=== PATIENT | female | born 1935 | race Caucasian/White ===

== ENCOUNTER 2018-01-21 19:48 | Emergency (ER) | payer MEDICARE ==
--- NOTE | 2018-01-21 21:54 | RAD ---
INDICATION: Cough COMPARISON: None TECHNIQUE: An AP portable view obtained at 2135 hours is submitted. FINDINGS: Bones/Soft Tissues: There are no acute bony findings. Cardiomediastinal: The cardiac silhouette is enlarged. Lungs: There are no infiltrates. Pleura: There are no pleural effusions. Other: None IMPRESSION: ENLARGED CARDIAC SILHOUETTE. LUNGS CLEAR.
[2018-01-21 22:07] LABS: ABS Basophils 0 10^3/ul (0-0.2); ABS Eosinophils 0 10^3/ul (0-0.6); ABS Lymphocytes 0.4 10^3/ul (1.0-4.8); ABS Monocytes 0.6 10^3/ul (0-0.8); ABS Neutrophils 9.1 10^3/ul (1.5-7.7); ABS Nucleated RBC 0 10^3/ul; Eosinophil % 0.4 % (0-6); Hematocrit 45 % (35-47); Mean Corpuscular HGB Conc 34 g/dl (31-36); Mean Corpuscular Hemoglobin 32 pg (27-31); Mean Corpuscular Volume 95 fL (80-97); Mean Platelet Volume 7.5 um3 (7.4-10.4); Nucleated Red Blood Cells % 0.1; Platelet Count 128 10^3/ul (150-450); Red Blood Count 4.69 10^6/ul (4.0-5.4); Red Cell Distribution Width 14 % (10.5-15); White Blood Count 10.2 10^3/ul (3.5-10.8)
[2018-01-21 22:26] LABS: EGFR Non-African American 48.9 (>60)
[2018-01-21] MEDS ORDERED: Albuterol/Ipratropium NEB.SOL* Albuterol 2.5 MG/Ipratropium 0.5 MG 3 ML INH ONE (23:26)
[2018-01-22 01:00] VITALS: BP 141/73
--- NOTE | 2018-01-22 01:05 | ED ---
Galo Fry Tecjoon, scribed for Nigel Urena MD on 01/21/18 at 2123 . Throat Pain/Nasal Congestion - HPI Summary HPI Summary: This patient is a 82 year old female presenting to [facility] accompanied by daughter -in-law with a chief complaint of acid reflux since approx. 2 weeks ago. Patient states that she cant swallow properly due to acid reflux. Patient states her last meal was around 1400, a turkey sandwich. Patient states that whenever she swallows, there is something in her throat, not dissimilar to being choked. Patient states that when she attempts, she vomits. Patient states she recently started taking Prilosec with minimal to no effects. During exam, patient is able to speak in full sentences and has no respiratory distress. The pain is rated 0/10 in severity. Symptoms aggravated by nothing. Symptoms alleviated by nothing. Patient additionally reports vomiting. Patient denies throat pain - History of Current Complaint Chief Complaint: EDGeneral Time Seen by Provider: 01/21/18 21:03 Hx Obtained From: Patient Onset/Duration: Still Present Severity: Mild Cough: Nonproductive - Allergies/Home Medications Allergies/Adverse Reactions: Allergies Allergy/AdvReac Type Severity Reaction Status Date / Time Penicillins Allergy Unknown Verified 01/21/18 20:09 Reaction Details Sulfa (Sulfonamide Allergy Unknown Verified 01/21/18 20:09 Antibiotics) Reaction Details Home Medications: Home Medications Albuterol HFA INHALER* [Ventolin HFA Inhaler*] 2 puff INH Q4H PRN 01/21/18 [ History Confirmed 01/21/18] Carvedilol TAB* [Coreg TAB*] 25 mg PO BID 01/21/18 [History Confirmed 01/21/18] Furosemide TAB* [Lasix TAB*] 40 mg PO DAILY 01/21/18 [History Confirmed 01/21/18 ] Ipratropium [place] [Ipratropium [place]] 0.06 % BOTH NARES BID 01/21/18 [ History Confirmed 01/21/18] Omeprazole CAP* [Prilosec CAP* 20 MG] 20 mg PO DAILY 01/21/18 [History Confirmed 01/21/18] Valsartan TAB* [Diovan TAB*] 160 mg PO DAILY 01/21/18 [History Confirmed ] predniSONE TAB* [Deltasone TAB*] 20 mg PO DAILY 01/21/18 [History Confirmed 04/04] PMH/Surg Hx/FS Hx/Imm Hx Previously Healthy: No GI History: Reports: Hx Gastroesophageal Reflux Disease Opthamlomology History: Denies: Hx Legally Blind EENT History: Denies: Hx Deafness Infectious Disease History: No Infectious Disease History: Denies: Traveled Outside the [place] in Last 30 Days - Family History Known Family History: Positive: Hypertension - Social History Lives: With Family Alcohol Use: None Hx Substance Use: No Substance Use Type: Reports: None Hx Tobacco Use: Yes Smoking Status (MU): Former Smoker Review of Systems Negative: Fever ENT: Other - closed throat, difficulty swallowing Negative: Sore Throat Positive: Vomiting All Other Systems Reviewed And Are Negative: Yes Physical Exam - Summary Physical Exam Summary: VITAL SIGNS: Reviewed. GENERAL: Patient is a well-developed and nourished female who is lying comfortable in the stretcher. Patient is not in any acute respiratory distress. HEAD AND FACE: No signs of trauma. No ecchymosis, hematomas or skull depressions. No sinus tenderness. EYES: PERRLA, EOMI x 2, No injected conjunctiva, no nystagmus. EARS: Hearing grossly intact. Ear canals and tympanic membranes are within normal limits. MOUTH: Oropharynx within normal limits. NECK: Supple, trachea is midline, no adenopathy, no JVD, no carotid bruit, no c- spine tenderness, neck with full ROM. CHEST: Symmetric, no tenderness at palpation LUNGS: Decreased breath sounds bilaterally CVS: Regular rate and rhythm, S1 and S2 present, no murmurs or gallops appreciated. ABDOMEN: Soft, non-tender. No signs of distention. No rebound no guarding, and no masses palpated. Bowel sounds are normal. EXTREMITIES: Bilateral lower extremity edema +3, Clubbing of fingers NEURO: Alert and oriented x 3. No acute neurological deficits. Speech is normal and follows commands. SKIN: Dry and warm Triage Information Reviewed: Yes Vital Signs On Initial Exam: Initial Vitals Temp Pulse Resp BP Pulse Ox 98.2 F 72 18 139/89 95 01/21/18 19:57 01/21/18 19:57 01/21/18 19:57 01/21/18 19:57 01/21/18 19:57 Vital Signs Reviewed: Yes Diagnostics - Vital Signs Vital Signs Temp Pulse Resp BP Pulse Ox 01/21/18 21:03 22 01/21/18 21:00 135/85 01/21/18 19:57 98.2 F 72 18 139/89 95 - Laboratory Result Diagrams: 01/21/18 21:54 01/21/18 21:54 Lab Statement: Any lab studies that have been ordered have been reviewed, and results considered in the medical decision making process. - Radiology CXR Xray Interpretation: Positive (See Comments) - CXR reveals, per radiologist, IMPRESSION: ENLARGED CARDIAC SILHOUETTE. LUNGS CLEAR. ED physician has reviewed this radiology report. Radiology Interpretation Completed By: Radiologist EENT Course/Dx - Course Course Of Treatment: This patient is a 82 year old female presenting to [facility] accompanied by [id number] with a chief complaint of acid reflux since approx. 2 weeks ago. Patient states that she cant swallow properly due to acid reflux. CXR reveals, per radiologist, IMPRESSION: ENLARGED CARDIAC SILHOUETTE. LUNGS CLEAR. ED physician has reviewed this radiology report. Bloodwork Obtained. Test results with no significant abnormalities. Patient will be discharged with a dx gastroesophageal reflux. Patient is advised to follow up with PCP in 3 days. The patient is agreeable with this plan. - Diagnoses Provider Diagnoses: Gastroesophageal reflux Discharge - Sign-Out/Discharge Documenting (check all that apply): Discharge - Discharge Plan Condition: Stable Disposition: HOME Patient Education Materials: Gastroesophageal Reflux Disease (ED) Referrals: Susan Casey MD [Primary Care Provider] - 3 Days Additional Instructions: Return to the ED for any new or worsening symptoms. The documentation as recorded by the Galo pichardo Tecjoon accurately reflects the service I personally performed and the decisions made by Ayanna rae Abdul, MD.
== END 2018-01-22 00:31 | disposition home or self-care (01) ==
LOC: ED 19:48
DX: K21.9 Gastro-esophageal reflux disease without esophagitis (principal); R11.10 Vomiting, unspecified; Z87.891 Personal history of nicotine dependence
CPT/HCPCS: 36415; 71045; 80053; 82150; 83690; 83735; 85025; 86140; 94640; 99283; A9270-GY

== ENCOUNTER 2018-04-19 14:09 | Inpatient (IN) | payer MEDICARE ==
[2018-04-19] MEDS ORDERED: NS 0.9% 1000 ML* 1,000 ML IV ONE (14:10)
--- NOTE | 2018-04-19 14:44 | RAD ---
INDICATION: Neurologic change. Code willis COMPARISON: None TECHNIQUE: Noncontrast axial source images were acquired from the skull base to the vertex. The examination is limited due to motion artifact. The patient could not cooperate fully for this examination FINDINGS: Ventricles/sulci: The ventricles and cisterns are normal in size and configuration for age. There is age-related volume loss Brain parenchyma: There is no acute appearing focal parenchymal finding, evidence of intracranial mass, or intracranial mass effect. There is significant artifact in the posterior fossa, however. There is decreased attenuation in the periventricular and subcortical white matter consistent with chronic ischemia. Intracranial hemorrhage:None. Extra-axial spaces: There are no abnormal extra axial fluid collections or evidence of extra-axial mass. Calvarium: There is no calvarial fracture or other calvarial abnormality. Scalp: There is no evidence of scalp or extracalvarial soft tissue abnormality. Paranasal sinuses/mastoid: The paranasal sinuses and mastoid air cells are clear. Other: None. IMPRESSION: LIMITED STUDY DUE TO MOTION ARTIFACT. AGE-RELATED INVOLUTIONAL CHANGES AND UNDERLYING CHRONIC MICROVASCULAR ISCHEMIA
[2018-04-19] MEDS ORDERED: Iodixanol* (CONTRAST) 320 MG/ML 100 ML SDV IV ONE (14:50)
[2018-04-19 15:03] LABS: ABS Basophils 0 10^3/ul (0-0.2); ABS Eosinophils 0.1 10^3/ul (0-0.6); ABS Lymphocytes 0.6 10^3/ul (1.0-4.8); ABS Monocytes 0.5 10^3/ul (0-0.8); ABS Neutrophils 4.2 10^3/ul (1.5-7.7); ABS Nucleated RBC 0 10^3/ul; Hematocrit 39 % (35-47); Lymphocyte % 11.3 % (25-47); Mean Corpuscular HGB Conc 34 g/dl (31-36); Mean Corpuscular Hemoglobin 33 pg (27-31); Mean Corpuscular Volume 98 fL (80-97); Mean Platelet Volume 7.9 um3 (7.4-10.4); Nucleated Red Blood Cells % 0; Platelet Count 150 10^3/ul (150-450); Red Blood Count 3.94 10^6/ul (4.00-5.40); Red Cell Distribution Width 15 % (10.5-15); White Blood Count 5.5 10^3/ul (3.5-10.8)
--- NOTE | 2018-04-19 15:03 | RAD ---
HISTORY: right hemiparesis [id number] COMPARISONS: Head CT dated April 19, 2018 TECHNIQUE: Multiple contiguous axial CT scans were obtained of the head and neck after the administration of nonionic intravenous contrast timed to the systemic arterial phase of contrast enhancement. Coronal and sagittal multiplanar reformations are submitted for review. Multiple 3-D maximum intensity projection reconstructions are also submitted for review. FINDINGS: The study is significantly limited secondary to extensive patient motion artifact. CTA NECK: AORTIC ARCH: There is calcific atherosclerotic disease of the aortic arch, without ostial or proximal stenosis of the cephalic great vessels. There is a normal three-vessel branching pattern. RIGHT VERTEBRAL ARTERY: The right vertebral artery is patent along its course, without stenosis. LEFT VERTEBRAL ARTERY: The left vertebral artery is patent along its course, without stenosis. DOMINANCE: The vertebral arteries are codominant. RIGHT COMMON CAROTID ARTERY: The right common carotid artery is patent. The right carotid bifurcation occurs at C4-C5 RIGHT INTERNAL CAROTID ARTERY: Evaluation limited by extensive patient motion artifact. The right internal carotid artery is patent. The degree of any stenosis cannot be evaluated. RIGHT EXTERNAL CAROTID ARTERY: The right external carotid artery is unremarkable. LEFT COMMON CAROTID ARTERY: The left common carotid artery is patent. The left carotid bifurcation occurs at C4-C5 LEFT INTERNAL CAROTID ARTERY: Evaluation limited by extensive patient motion artifact. The left internal carotid artery is occluded at the bifurcation. LEFT EXTERNAL CAROTID ARTERY: The left external carotid artery is unremarkable. VENOUS CIRCULATION: The venous system is unremarkable. SALIVARY GLANDS: The parotid glands, submandibular glands, sublingual glands are normal. NASAL CAVITY/NASOPHARYNX: The nasal cavity and nasopharynx are normal. ORAL CAVITY/OROPHARYNX: The oral cavity and oropharynx are unremarkable. LARYNGEAL APPARATUS/HYPOPHARYNX: The laryngeal apparatus and hypopharynx are normal. UPPER AIRWAY/UPPER ESOPHAGUS: The visualized upper airway and esophagus are normal. LUNG APICES: There is biapical centrilobular emphysematous change. THYROID GLAND: The thyroid gland is normal. LYMPH NODES: There is no lymphadenopathy by size criteria. BONES AND SOFT TISSUES: Degenerative changes are noted of the spine. CTA HEAD: The CTA portion of the head is considered nondiagnostic secondary to extensive motion artifact. IMPRESSION: 1. MARKEDLY LIMITED STUDY. 2. THE CTA HEAD PORTION OF THE STUDY IS CONSIDERED NONDIAGNOSTIC. 3. 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 PRELIMINARY FINDINGS WERE DISCUSSED WITH DR. ALMEIDA IN THE EMERGENCY DEPARTMENT AT APPROXIMATELY 2:59 PM ON APRIL 19, 2018. CPT II Codes: 3100F
--- NOTE | 2018-04-19 15:07 | RAD ---
Indication: Shortness of breath. Single frontal view of the chest performed at 1445 hours was reviewed. Comparison is made with previous exam dated January 21, 2018. Cardiomegaly is noted. Lung alvarez demonstrate no pleural fluid, pneumonia or pneumothorax. No pneumothorax is noted. IMPRESSION: CARDIOMEGALY WITHOUT EVIDENCE OF PNEUMONIA.
[2018-04-19 15:12] LABS: INR 1.03 (0.77-1.02)
[2018-04-19 15:34] LABS: EGFR Non-African American 59.7 (>60)
[2018-04-19 15:43] LABS: Urine Appearance Clear; Urine Blood 1+ (Negative); Urine Color Yellow; Urine Ketones Negative (Negative); Urine Protein Negative (Negative); Urine Specific Gravity 1.009 (1.010-1.030); Urine Urobilinogen Negative (Negative)
[2018-04-19] MEDS ORDERED: Morphine VIAL* 4 MG/ML VIAL (1 ml vial) IV ONE (16:17)
[2018-04-19] MEDS ORDERED: Ondansetron ODT TAB* 4 MG SL PRN (17:46)
[2018-04-19] MEDS ORDERED: Atropine 1% (ORAL/SL)* 15 ML BTL SL PRN (17:46)
[2018-04-19] MEDS ORDERED: Acetaminophen SUPP* 650 MG SUPP PR PRN (17:46)
[2018-04-19] MEDS ORDERED: Albuterol HFA INHALER* 8 gm MDI INH PRN (17:51)
[2018-04-19] MEDS ORDERED: Ipratropium 0.5MG/2.5ML NEB* 0.5 MG/2.5 ML NEB.SOLN INH PRN (17:51)
[2018-04-19] MEDS ORDERED: Scopolamine 1.5 mg* PATCH TRANSDERM SCH (18:00)
--- NOTE | 2018-04-19 18:12 | ED ---
Vipul Fry SooYoung, scribed for Magda Michaels MD on 04/19/18 at 1419 . Neurological HPI - HPI Summary HPI Summary: LEVEL 5 CAVEAT: HPI LIMITED DUE TO PT CONDITION, UNRESPONSIVE Pt is an 82 y/o F presenting to ED BIBA for possible stroke onset EDGE [place] UPPERS. Per EMS: Family last saw pt at 0830 this date and pt was at her baseline. When they came home this afternoon at approx 1315, the family found the pt face down. Pt showing signs of R-sided deficit. Pt has COPD, CHF. Per family: Found pt face down on floor. She was not talking. PMHx negative: stroke, brain surgery or any recent surgeries. Takes daily baby aspirin. Pt has c/o of dyspnea for past few days. Pt seen at 1403 immediately upon arrival at Charge desk. Dr. Toro, neuro, is present. - History of Current Complaint Stated Complaint: CODE RENE Time Seen by Provider: 04/19/18 14:10 Hx Obtained From: Family/Demurrage Man, EMS - Allergy/Home Medications Allergies/Adverse Reactions: Allergies Allergy/AdvReac Type Severity Reaction Status Date / Time Penicillins Allergy Unknown Verified 01/21/18 20:09 Reaction Details Sulfa (Sulfonamide Allergy Unknown Verified 01/21/18 20:09 Antibiotics) Reaction Details Home Medications: Home Medications Albuterol HFA INHALER* [Ventolin HFA Inhaler*] 2 puff INH Q4H PRN 04/19/18 [ History Confirmed 04/19/18] Aspirin EC TAB* [Ecotrin EC Low Dose 81 MG*] 81 mg PO DAILY 04/19/18 [History Confirmed 04/19/18] Carvedilol TAB* [Coreg TAB*] 12.5 mg PO BID 04/19/18 [History Confirmed 04/19/18 ] Famotidine TAB* [Pepcid 20 MG TAB*] 20 mg PO DAILY 04/19/18 [History Confirmed 04/19/18] Furosemide TAB* [Lasix TAB*] 20 mg PO DAILY 04/19/18 [History Confirmed 04/19/18 ] Ipratropium 0.5MG/2.5ML NEB* [Atrovent 0.5 MG NEB.SOUTH*] 0.5 mg INH Q6H PRN 04/19 [History Confirmed 04/19/18] Ipratropium Zebulon 1 spray NA BID 04/19/18 [History Confirmed 04/19/18] Omeprazole CAP* [Prilosec CAP* 20 MG] 20 mg PO BID 04/19/18 [History Confirmed 04/19/18] Ranitidine TAB (NF) [Zantac TAB (NF)] 150 mg PO DAILY 04/19/18 [History Confirmed 04/19/18] Valsartan TAB* [Diovan TAB*] 160 mg PO BID 04/19/18 [History Confirmed 04/19/18] PMH/Surg Hx/FS Hx/Imm Hx Previously Healthy: No - LEVEL 5 CAVEAT:PMHx LIMITED DUE TO PT CONDITION, UNRESPONSIVE Respiratory History: Reports: Hx Asthma, Hx Chronic Obstructive Pulmonary Disease (COPD) GI History: Reports: Hx Gastroesophageal Reflux Disease Sensory History: Denies: Hx Legally Blind, Hx Deafness Opthamlomology History: Denies: Hx Legally Blind Infectious Disease History: Denies: Traveled Outside the [place] in Last 30 Days - Family History Known Family History: Positive: Hypertension - Social History Occupation: Retired Lives: With Family Alcohol Use: None Hx Substance Use: No Substance Use Type: Reports: None Hx Tobacco Use: Yes Smoking Status (MU): Former Smoker Review of Systems - ROS Summary Review of Systems Summary: LEVEL 5 CAVEAT: ROS LIMITED DUE TO PT CONDITION, UNRESPONSIVE. Physical Exam - Summary Physical Exam Summary: Appearance: Well-appearing, moderate pain distress, well-nourished Skin: Warm, color reflects adequate perfusion, dry Head: Normal Head/Face inspection, atraumatic Eyes: Conjunctiva clear ENT: Normal inspection Neck: Supple, no nodes, no JVD Respiratory: Lungs clear, normal breath sounds, no respiratory distress Cardio: RRR, No murmur, pulses normal, brisk capillary refill Abdomen: Soft, nontender Bowel sounds: Present Musculoskeletal: Strength Intact/ROM intact, no calf tenderness, no edema. Psychological: Normal Neuro: Alert, muscle tone normal, no focal deficit Triage Information Reviewed: Yes Vital Signs On Initial Exam: Initial Vitals Temp Pulse Resp BP Pulse Ox 98.8 F 96 30 146/103 80 04/19/18 14:24 04/19/18 14:24 04/19/18 14:24 04/19/18 14:24 04/19/18 14:24 Vital Signs Reviewed: Yes - [place] Coma Scale Best Eye Response: 4 - Spontaneous Best Motor Response: 4 - Withdraws Best Verbal Response: 1 - None Coma Scale Total: 9 Diagnostics - Vital Signs Vital Signs Temp Pulse Resp BP Pulse Ox 04/19/18 17:54 64 21 123/88 98 04/19/18 17:24 67 21 121/81 97 04/19/18 17:00 64 22 99 04/19/18 16:54 66 24 126/82 99 04/19/18 16:25 37 153/118 04/19/18 16:21 40 04/19/18 16:00 82 39 98 04/19/18 15:25 80 30 136/100 100 04/19/18 15:00 78 24 87 04/19/18 14:54 80 42 147/89 92 04/19/18 14:46 84 38 92 04/19/18 14:24 98.8 F 96 30 146/103 80 - Laboratory Lab Results: Lab Results 04/19/18 04/19/18 04/19/18 Range/Units 14:44 14:44 14:44 WBC 5.5 (3.5-10.8) 10^3/ul RBC 3.94 L (4.00-5.40) 10^6/ul Hgb 13.0 (12.0-16.0) g/dl Hct 39 (35-47) % MCV 98 H (80-97) fL MCH 33 H (27-31) pg MCHC 34 (31-36) g/dl RDW 15 (10.5-15) % Plt Count 150 (150-450) 10^3/ul MPV 7.9 (7.4-10.4) um3 Neut % (Auto) 77.1 (38-83) % Lymph % (Auto) 11.3 L (25-47) % [place] % (Auto) 9.9 H (0-7) % Eos % (Auto) 1.0 (0-6) % Baso % (Auto) 0.7 (0-2) % Absolute Neuts (auto) 4.2 (1.5-7.7) 10^3/ul Absolute Lymphs (auto) 0.6 L (1.0-4.8) 10^3/ul Absolute Monos (auto) 0.5 (0-0.8) 10^3/ul Absolute Eos (auto) 0.1 (0-0.6) 10^3/ul Absolute Basos (auto) 0 (0-0.2) 10^3/ul Absolute Nucleated RBC 0 10^3/ul Nucleated RBC % 0 INR (Anticoag Therapy) 1.03 H (0.77-1.02) APTT 34.7 (26.0-36.3) seconds Sodium 141 (135-145) mmol/L Potassium 3.4 L (3.5-5.0) mmol/L Chloride 104 (101-111) mmol/L Carbon Dioxide 29 (22-32) mmol/L Anion Gap 8 (2-11) mmol/L BUN 28 H (6-24) mg/dL Creatinine 0.90 (0.51-0.95) mg/dL Est GFR ( Amer) 72.2 (>60) Est GFR (Non-Af Amer) 59.7 (>60) BUN/Creatinine Ratio 31.1 H (8-20) Glucose 112 H (70-100) mg/dL Lactic Acid (0.5-2.0) mmol/L Calcium 8.2 L (8.6-10.3) mg/dL Total Bilirubin 0.50 (0.2-1.0) mg/dL AST 28 (13-39) U/L ALT 26 (7-52) U/L Alkaline Phosphatase 68 (34-104) U/L Troponin I 0.03 (<0.04) ng/mL B-Natriuretic Peptide ( - 100) pg/mL Total Protein 5.4 L (6.4-8.9) g/dL Albumin 3.0 L (3.2-5.2) g/dL Globulin 2.4 (2-4) g/dL Albumin/Globulin Ratio 1.3 (1-3) Triglycerides 122 mg/dL Cholesterol 147 mg/dL LDL Cholesterol 79 mg/dL HDL Cholesterol 43.2 mg/dL Urine Color Urine Appearance Urine pH (5-9) Ur Specific [place] (1.010-1.030) Urine Protein (Negative) Urine Ketones (Negative) Urine Blood (Negative) Urine Nitrate (Negative) Urine Bilirubin (Negative) Urine Urobilinogen (Negative) Ur Leukocyte Esterase (Negative) Urine WBC (Auto) (Absent) Urine RBC (Auto) (Absent) Urine Bacteria (Absent) Hyaline Casts (Absent) Urine Glucose (Negative) Blood Type Antibody Screen 04/19/18 04/19/18 04/19/18 Range/Units 14:44 14:44 14:44 WBC (3.5-10.8) 10^3/ul RBC (4.00-5.40) 10^6/ul Hgb (12.0-16.0) g/dl Hct (35-47) % MCV (80-97) fL MCH (27-31) pg MCHC (31-36) g/dl RDW (10.5-15) % Plt Count (150-450) 10^3/ul MPV (7.4-10.4) um3 Neut % (Auto) (38-83) % Lymph % (Auto) (25-47) % [place] % (Auto) (0-7) % Eos % (Auto) (0-6) % Baso % (Auto) (0-2) % Absolute Neuts (auto) (1.5-7.7) 10^3/ul Absolute Lymphs (auto) (1.0-4.8) 10^3/ul Absolute Monos (auto) (0-0.8) 10^3/ul Absolute Eos (auto) (0-0.6) 10^3/ul Absolute Basos (auto) (0-0.2) 10^3/ul Absolute Nucleated RBC 10^3/ul Nucleated RBC % INR (Anticoag Therapy) (0.77-1.02) APTT (26.0-36.3) seconds Sodium (135-145) mmol/L Potassium (3.5-5.0) mmol/L Chloride (101-111) mmol/L Carbon Dioxide (22-32) mmol/L Anion Gap (2-11) mmol/L BUN (6-24) mg/dL Creatinine (0.51-0.95) mg/dL Est GFR ( Amer) (>60) Est GFR (Non-Af Amer) (>60) BUN/Creatinine Ratio (8-20) Glucose (70-100) mg/dL Lactic Acid 1.6 (0.5-2.0) mmol/L Calcium (8.6-10.3) mg/dL Total Bilirubin (0.2-1.0) mg/dL AST (13-39) U/L ALT (7-52) U/L Alkaline Phosphatase (34-104) U/L Troponin I (<0.04) ng/mL B-Natriuretic Peptide 4515 H ( - 100) pg/mL Total Protein (6.4-8.9) g/dL Albumin (3.2-5.2) g/dL Globulin (2-4) g/dL Albumin/Globulin Ratio (1-3) Triglycerides mg/dL Cholesterol mg/dL LDL Cholesterol mg/dL HDL Cholesterol mg/dL Urine Color Urine Appearance Urine pH (5-9) Ur Specific [place] (1.010-1.030) Urine Protein (Negative) Urine Ketones (Negative) Urine Blood (Negative) Urine Nitrate (Negative) Urine Bilirubin (Negative) Urine Urobilinogen (Negative) Ur Leukocyte Esterase (Negative) Urine WBC (Auto) (Absent) Urine RBC (Auto) (Absent) Urine Bacteria (Absent) Hyaline Casts (Absent) Urine Glucose (Negative) Blood Type A Positive Antibody Screen Negative 04/19/18 Range/Units 15:22 WBC (3.5-10.8) 10^3/ul RBC (4.00-5.40) 10^6/ul Hgb (12.0-16.0) g/dl Hct (35-47) % MCV (80-97) fL MCH (27-31) pg MCHC (31-36) g/dl RDW (10.5-15) % Plt Count (150-450) 10^3/ul MPV (7.4-10.4) um3 Neut % (Auto) (38-83) % Lymph % (Auto) (25-47) % [place] % (Auto) (0-7) % Eos % (Auto) (0-6) % Baso % (Auto) (0-2) % Absolute Neuts (auto) (1.5-7.7) 10^3/ul Absolute Lymphs (auto) (1.0-4.8) 10^3/ul Absolute Monos (auto) (0-0.8) 10^3/ul Absolute Eos (auto) (0-0.6) 10^3/ul Absolute Basos (auto) (0-0.2) 10^3/ul Absolute Nucleated RBC 10^3/ul Nucleated RBC % INR (Anticoag Therapy) (0.77-1.02) APTT (26.0-36.3) seconds Sodium (135-145) mmol/L Potassium (3.5-5.0) mmol/L Chloride (101-111) mmol/L Carbon Dioxide (22-32) mmol/L Anion Gap (2-11) mmol/L BUN (6-24) mg/dL Creatinine (0.51-0.95) mg/dL Est GFR ( Amer) (>60) Est GFR (Non-Af Amer) (>60) BUN/Creatinine Ratio (8-20) Glucose (70-100) mg/dL Lactic Acid (0.5-2.0) mmol/L Calcium (8.6-10.3) mg/dL Total Bilirubin (0.2-1.0) mg/dL AST (13-39) U/L ALT (7-52) U/L Alkaline Phosphatase (34-104) U/L Troponin I (<0.04) ng/mL B-Natriuretic Peptide ( - 100) pg/mL Total Protein (6.4-8.9) g/dL Albumin (3.2-5.2) g/dL Globulin (2-4) g/dL Albumin/Globulin Ratio (1-3) Triglycerides mg/dL Cholesterol mg/dL LDL Cholesterol mg/dL HDL Cholesterol mg/dL Urine Color Yellow Urine Appearance Clear Urine pH 5.0 (5-9) Ur Specific [place] 1.009 L (1.010-1.030) Urine Protein Negative (Negative) Urine Ketones Negative (Negative) Urine Blood 1+ A (Negative) Urine Nitrate Negative (Negative) Urine Bilirubin Negative (Negative) Urine Urobilinogen Negative (Negative) Ur Leukocyte Esterase Negative (Negative) Urine WBC (Auto) Trace(0-5/hpf) (Absent) Urine RBC (Auto) Absent (Absent) Urine Bacteria Absent (Absent) Hyaline Casts Present A (Absent) Urine Glucose Negative (Negative) Blood Type Antibody Screen Result Diagrams: 04/19/18 14:44 04/19/18 14:44 Lab Statement: Any lab studies that have been ordered have been reviewed, and results considered in the medical decision making process. - Radiology CXR Xray Interpretation: Positive (See Comments) - IMPRESSION: Cardiomegaly without evidence of PNA. ED physician has reviewed this radiology report and agrees. Radiology Interpretation Completed By: Radiologist - CT BRAIN CT CT Interpretation: Positive (See Comments) - IMPRESSION: LIMITED STUDY DUE TO MOTION ARTIFACT. AGE-RELATED INVOLUTIONAL CHANGES AND UNDERLYING CHRONIC MICROVASCULAR ISCHEMIA. ED physician has reviewed this report and agrees. CT Interpretation Completed By: Radiologist HEAD CTA CT Interpretation: Positive (See Comments) - IMPRESSION: Critical stenosis in L internal carotid. See [employer] for full impression. CT Interpretation Completed By: Radiologist - Dr Bautista, at 1458. - EKG 1438 Cardiac Rate: NL EKG Rhythm: Sinus Rhythm - 78bpm ST Segment: Non-Specific Ectopy: None EKG Interpretation: nml AVCT, prolonged IVCT in LBBB, prolonged QTc, axis 206, no acute changes EKG Comparison: Other - no prior for comparison NIH Scale - NIH Scale Level of Consciousness: Repeated or Painful Stimulation Ask Patient the Month and His/Her Age: Neither Correct/Aphasic Ask Pt to Open/Close Eyes and Stage Rigger/Release Non-Paretic Hand: Neither Correctly Best Gaze (Only Horizontal Eye Movement): Forced Deviation Visual Field Testing: Bilateral Hemianopia Facial Paresis-Pt to Smile & Close Eyes or Grimace Symmetry: Complete Paralysis Motor Function - Right Arm: No Movement Motor Function - Left Arm: No Drift-Holds 10 Seconds Motor Function - Right Leg: No Movement Motor Function - Left Leg: No Drift-Holds 10 Seconds Limb Ataxia-Must be out of Proportion to Weakness Present: Present in Two Limbs Sensory (Use Pinprick to Test Arms/Legs/Trunk/Face): Severe to Total Loss Best Language (Describe Picture, Name Items): Mute/Global Aphasia Dysarthria (Read Several Words): Unintelligible or Mute Extinction and Inattention: Profound Aníbal-Inattention Total Score: 33 Re-Evaluation - Re-Evaluation 1 Re-Evaluation Time: 15:54 Change: Unchanged Comment: Discussing comfort care with family, plans for admission, and next steps. Per family, pt has been mildly responsive -- talking, laughing. Course/Dx - Course Course Of Treatment: 1356: Vishal Rene called in the field. 1418: Unofficial read of plain CTA by Dr. Toro, neuro: IMPRESSION: no bleed. 1439: Per new information from pt's medical proxy, Brenna Miranda SPD MANAGER, will not be transferring pt, told to "keeps pt comfortable, no intervention.". 1437: Consulted with physician at [facility]. Family told they may consult with if additional care is needed. - Diagnoses Provider Diagnoses: Stroke During the Visit The Following Alert/Code Occurred: Vishal Ramos - Called at 1356, in field - Physician Notifications Discussed Care Of Patient With: Royer Toro - neuro Time Discussed With Above Provider: 14:39 Instructed by Provider To: Other - New information provided by medical proxy, will not be transferring pt. - Critical Care Time Critical Care Time: 30-74 min - 30 mins, assessing for acute LVO stroke Discharge - Discharge Plan Referrals: Susan Casey MD [Primary Care Provider] - Consult Consult: 1508: Consult with Dr. carrillo, hospitalist Will admit pt. The documentation as recorded by the Vipul pichardo SooYoung accurately reflects the service I personally performed and the decisions made by me, Magda Michaels MD.
--- NOTE | 2018-04-19 18:17 | CONS ---
NEUROLOGY CONSULTATION: DATE OF CONSULT: 04/19/18 LOCATION: She is in the emergency room. REFERRING PHYSICIAN: Dr. Magda Michaels. CHIEF COMPLAINT: Stroke. HISTORY OF PRESENT ILLNESS: Crystal Dobbs is an 82-year-old right-handed woman who was last seen well by her son and [id number] at 8:30 this morning. They went out of town and came back to [facility] on the floor. An ambulance was summoned and she arrived in the emergency room about 5 hours an d 45 minutes into her syndrome in terms of last known well. There is no prior history of stroke or s eizures. She is not on anticoagulants. She has a history of ischemic cardiomyopathy with a declinin g ejection fraction. There are no recent surgeries or trauma. She is not on anticoagulants. She ta kes 1 aspirin per day at home. She was seen upon arrival in the emergency room by myself and Dr. Anna alford. She had a forced left gaze deviation and was not moving her right side. In the CT scanner, ther e was some movement artifact, but there was no evidence of early infarction. There was suggestion of a left middle cerebral artery dense sign, but it could have been calcification. A CT angiogram was a ttempted, but the patient moved right into the infusion and so, it is a very poor study. I cannot re ally see the intracranial vessels very well at all. She was brought back into the emergency room and reevaluated. She continued with a dense right hemiparesis, which was flaccid in arm and leg, centra l pattern facial weakness, forced gaze deviation to the left. She did not respond to visual threat. She was mute and did not respond to any commands or answer questions. I estimate her NIH stroke scor e was 27. We initiated possible evaluation at the [facility] for possible thrombectomy as she is outside of the intravenous t-PA window. The son connected me to his sister, who is a nurse practitioner in [place]. Her name is Brenna Downey and she reported that her mother would not wa nt any further interventions done and would just want to be kept comfortable. She reaffirmed that sh e has a bad ischemic cardiomyopathy, which has been getting worse and has been losing weight because of the esophageal strictures. She assured me that she is the healthcare proxy. At that point, I spo ke with the son and [id number] and it was agreed upon not to pursue possible transfer for mechan ical thrombectomy. PAST MEDICAL HISTORY: Notable for ischemic cardiomyopathy, COPD, gastroesophageal reflux. MEDICATIONS AT HOME: 1. Aspirin 81 mg p.o. q. day. 2. Diovan 160 mg p.o. b.i.d. 3. Furosemide 20 mg p.o. q. day. 4. Ventolin inhaler 2 puffs q.4 hours p.r.n. 5. Atrovent inhaler 0.5 mg q.6 hours p.r.n. 6. Coreg 12.5 mg p.o. b.i.d. 7. Omeprazole 20 mg p.o. b.i.d. 8. Pepcid 20 mg p.o. q. day. SOCIAL HISTORY: The patient apparently lives independently with family help. REVIEW OF SYSTEMS: Not possible at this point in time. PHYSICAL EXAM: She is an elderly woman who is having some difficulty breathing at first evaluation. Heart appears to be in a regular rhythm and I could not hear any murmurs. There are no cervical bru its auscultated. Head was atraumatic. There is a little ecchymosis on her right knee. Neurologically, she had forced left gaze deviation, which improved about an hour or so after first ev aluation. She did not respond to visual threat from either side initially, but about an hour after t he first evaluation responded to visual threat from the left, but not the right. Facial musculature is notable for central pattern right facial weakness. She did not respond to nasal tickle on the rig ht, but she did on the left. She had a flaccid right arm and right leg initially. About an hour late r, she weakly raised the right hand up, but was not able to raise the right arm up. She had semi-pur poseful motions of the left arm reaching up toward her mask and at one point scratching her face. Sh e had restless movements of the left leg. She did not respond to deep pain stimulus to the right morales d or foot. She was mute and followed no commands. About an hour after initial evaluation, she would smile at the family and at one point seemed to hold up 1 finger to command. DIAGNOSTIC STUDIES/LAB DATA: CT angiogram report came back and was interpreted by the radiologist as having occlusion of the left carotid artery. The intracranial portion of the CTA was uninterpretabl e. Laboratory data from today is notable for a normal CBC other than MCV of 98. Platelet count is 150,00 0. INR and PTT are not back yet. Chemistry profile is not back yet either, but her creatinine on was 1.07 with a BUN of 37 and a GFR of 48.9. IMPRESSION AND PLAN: Impression is that of a left carotid occlusion. She is outside of the IV t-PA window. We discussed possible consideration for mechanical thrombectomy with rayne to [facility] when I spoke with the healthcare proxy, Brenna Downey, she said that the patient would not want maribell t done. We will continue aspirin and if she is able to swallow, start Plavix. We will decide on how aggressi ve to be as she comes along. Her nurse practitioner healthcare proxy, Brenna Downey, is on her way to the hospital and we can discuss it further at that point. [id number]/[facility] #: [id number]
[2018-04-19 21:45] VITALS: BP 137/103
[2018-04-19] MEDS: Morphine ORAL CONCENTRATE* 5 MG/0.25 ML ORAL.SYRIN PO PRN (21:59)
--- NOTE | 2018-04-19 23:56 | HP ---
CC: Dr. Susan Casey* HISTORY AND PHYSICAL: DATE OF ADMISSION: 04/19/18 PROVIDER: Rosanne Acosta NP PRIMARY CARE PROVIDER: Dr. Susan Casey. ATTENDING PHYSICIAN WHILE IN THE HOSPITAL: Dr. Janeth Mckeon* (dictated by Rosanne Acosta NP) CHIEF COMPLAINT: Change in mental status/weakness. HISTORY OF PRESENT ILLNESS: Ms. Dobbs is an 82-year-old female patient with a past medical history significant for ischemic cardiomyopathy with an EF of 15 % to 20%, GERD, hypertension, and asthma, who was brought to the emergency room by EMS. The patient lives with her son and [id number]. The son last saw her this morning at 8 a.m. She was still resting in bed, but alert and oriented with no complaints. The son and daughter left and went out of town. They returned to the home between 1 to 1:30 p.m. and found the patient lying on the floor, unresponsive, so they called EMS and she was brought to the emergency room. The family states that the patient was in her normal state of health yesterday with no complaints. She was totally cognitively intact. She is independent and very functional at home. They denied any recent illnesses or sick contacts. While in the emergency room, the patient was placed on telemetry. She had a CT of the brain. CT of the brain, radiologist's impression was limited study due to motion artifact, age-related involutional changes, and underlying chronic microvascular ischemia. She had a CTA of the head. The CTA of the head portion of the study was considered nondiagnostic. There was an occlusion of left internal carotid artery at the bifurcation. This was remarkably limited study. The patient remained unresponsive in the emergency room. Her right arm was flaccid, her right leg was weak. Initial NIH score was 33. Given her symptoms and stroke presenting symptoms, we were asked by the emergency room to evaluate her for admission. She was also seen and consulted by Neurology in the emergency room as well. PAST MEDICAL HISTORY: 1. Ischemic cardiomyopathy with EF of 15% to 20%. 2. GERD. 3. Uterine prolapse with pessary. 4. Hypertension. 5. Asthma. PAST SURGICAL HISTORY: Hysterectomy. HOME MEDICATIONS: Include: 1. Zantac 150 mg p.o. daily. 2. Pepcid 20 mg p.o. daily. 3. Omeprazole 20 mg p.o. b.i.d. 4. Aspirin 81 mg p.o. daily. 5. Valsartan 160 mg p.o. b.i.d. 6. Furosemide 20 mg p.o. daily. 7. Ipratropium bromide 1 spray b.i.d. 8. Albuterol HFA 2 puffs q.4 hours as needed. 9. Atrovent nebulizer 0.5 q.6 hours as needed. 10. Coreg 12.5 mg p.o. b.i.d. ALLERGIES: Allergy to PENICILLIN and SULFA. SOCIAL HISTORY: The patient quit smoking approximately 30 years ago. Prior to that, she had a [id number] smoking history. Family reports no alcohol or illicit drug use. They reported she retired approximately 3 years ago. Surrogate decision maker in the event she is unable to make her own decisions is Brenna Bernal, her daughter. The patient is a DNR, DNI comfort measures only. REVIEW OF SYSTEMS: There was no documented fever. Unable to get review of systems from the patient as she is nonverbal with minimal response. The family reports no vomiting or recent illnesses. No fevers, cough, or congestion. PHYSICAL EXAMINATION GENERAL: Ms. Dobbs is an 82-year-old female, who appears unwell resting on the stretcher in the emergency room. She does not appear to be in any acute distress. She will open her eyes minimally to tactile stimuli. VITAL SIGNS: Blood pressure is 147/89, heart rate was 77, respirations are 24, temperature was 98.8, O2 saturation was 92% to 98% on 4 L via facemask. HEENT: Head is atraumatic, normocephalic. She does have a left gaze with her eyes. Oral mucosa appeared to be dry. NECK: Supple. LUNGS: Clear to auscultation bilaterally. There are no wheezes, rales, or rhonchi. CARDIAC: S1, S2. There is a regular rate. There are no rubs or gallops. ABDOMEN: Flat. Bowel sounds are present x4. EXTREMITIES: Pulses are +2 bilaterally. Her right arm is flaccid. She does have a strong left handgrip. Her right lower extremity has weakened muscle tone. Her left lower extremity is stiff when trying to move. NEUROLOGIC: She does not follow commands consistently. She did squeeze my hand with her left hand. Her right arm is flaccid. She is gazing to the left with her head turned to the left side. She does move bilateral feet with tactile stimulation. SKIN: Intact. DIAGNOSTIC STUDIES AND LABORATORY DATA: WBCs were 5.5, RBCs 3.94, hemoglobin was 13.0, hematocrit was 39, platelet count was 150. Coag 1.03. Chemistry: Sodium 141, potassium was 3.4, chloride was 104, carbon dioxide was 29, BUN was 28, creatinine 0.9, lactic acid was 1.6, calcium 8.2, BNP was 4515. Urine pH was 5.0, specific gravity 1.009, urine protein was negative, urine ketones were negative, urine blood was 1+, urine nitrites were negative, bilirubin was negative, urobilinogens negative, urine leukocyte esterase was negative, urine wbc's were trace, rbc's were absent, bacteria was absent. Hyaline casts were present. Urine glucose was negative. EKG showed sinus rhythm at a rate of 78 with T-wave changes. CT of the brain, radiologist's impression: Limited study due to motion artifact, age-related involutional changes, underlying chronic microvascular ischemia. Chest x-ray: Cardiomegaly without evidence of pneumonia. CTA of the head, radiologist's impression: Markedly limited study. The CTA of the head portion of the study was considered nondiagnostic. There is an occlusion of the left internal carotid artery at the bifurcation. ASSESSMENT AND PLAN: Ms. Dobbs is an unfortunate 82-year-old female that presented to the emergency room today with altered mental status and stroke- like symptoms. 1. Cerebrovascular accident. The patient was seen and consulted by Dr. Toro in the emergency room. Family was updated on her prognosis and symptoms. The patient has decided to make the patient comfort care. She will be admitted under comfort care orders with very limited intervention. They do not wish to have IV hydration or IV antibiotics. She will be given sublingual morphine as needed for shortness breath or pain. She will be given Ativan sublingual as needed for anxiety and restlessness. I did also order atropine as needed for increased secretions. The patient may have oxygen as needed for comfort. The family wishes at this time to proceed with hospice and comfort measures only. A MOLST form was completed and filled out and signed and has been placed on the chart. The family are all in agreement proceeding with comfort measures only at this time. The patient will be admitted to the medical floor on comfort care. 2. Code status: She is a DNR, DNI. TIME SPENT: Time spent on this admission was approximately 60 minutes, greater than half that time was spent [id number] with the family obtaining the history and physician, the other half the time was spent going over my plan of care and implementing my plan of care. I have discussed this with my attending, Dr. Janeth Mckeon, she is in agreement with my plan. ROSANNE ACOSTA, [place] [id number]/[facility] #: [id number] HELENA
[2018-04-20] MEDS: LORazepam TAB(*) 0.5 MG SL PRN ×2 (02:44→09:46)
[2018-04-20] MEDS: Morphine ORAL CONCENTRATE* 5 MG/0.25 ML ORAL.SYRIN PO PRN ×8 (02:44→22:11)
--- NOTE | 2018-04-20 07:45 | PN ---
Subjective Date of Service: 04/20/18 Interval History: Ms. Dobbs is non-verbal but appears to be comfortable this morning. Her daughter is at the bedside and agrees. Objective Active Medications: Acetaminophen (Tylenol Supp*) 650 mg NM Q4H PRN Albuterol (Ventolin Hfa Inhaler*) 2 puff INH Q4H PRN Atropine Sulfate (Atropine 1% (Oral/Sl)*) 2 drop SL Q2H PRN Ipratropium [place] (Atrovent 0.5 Mg Neb.Uyen*) 0.5 mg INH Q6H PRN Lorazepam (Ativan Tab(*)) 0.5 mg SL Q6H PRN Morphine Sulfate (Morphine Oral Concentrate*) 5 mg PO Q2H PRN Ondansetron HCl (Zofran Odt Tab*) 4 mg SL Q8H PRN Scopolamine (Transderm-Scop 1.5 Mg Patch*) 1 patch TRANSDERM Q72H MAVERICK Vital Signs: Temp Pulse Resp BP Pulse Ox 98.1 F 69 24 137/103 100 04/19/18 20:00 04/19/18 20:00 04/20/18 05:38 04/19/18 20:00 04/19/18 20:00 Oxygen Devices in Use Now: Nasal Cannula Appearance: Female lying in bed in NAD Eyes: No Scleral Icterus Ears/Nose/Mouth/Throat: Mucous Membranes Moist Neck: Trachea Midline Neurological: - - Alert, left gaze deviation Result Diagrams: 04/19/18 14:44 04/19/18 14:44 Additional Lab and Data: Vital Signs: Temp Pulse Resp BP Pulse Ox 98.1 F 69 24 137/103 100 04/19/18 20:00 04/19/18 20:00 04/20/18 05:38 04/19/18 20:00 04/19/18 20:00 Assess/Plan/Problems-Billing Assessment: Ms. Dobbs is an 82 yo with a PMH of ICM with EF 15-20% who was admitted on 04/19 with CVA secondary to left carotid occlusion with plan for comfort care. - Patient Problems (1) CVA (cerebral vascular accident) Comment: - Comfort measures only. - Continue morphine and ativan prn. (2) DVT prophylaxis Comment: - None indicated. (3) DNR (do not resuscitate) Comment: Status and Disposition: Inpatient. Plan for discharge home with hospice on Wednesday.
[2018-04-20] MEDS ORDERED: LORazepam TAB(*) 0.5 MG SL PRN ×2 (11:04→15:21)
[2018-04-20] MEDS ORDERED: LORazepam TAB(*) 1 MG SL ONE (15:21)
[2018-04-21] MEDS: Morphine ORAL CONCENTRATE* 5 MG/0.25 ML ORAL.SYRIN PO PRN ×5 (04:03→13:42)
--- NOTE | 2018-04-21 09:41 | PN ---
Subjective Date of Service: 04/21/18 Interval History: Patient seen and examined at bedside. Pt is unresponsive, and appears to be comfortable. Pt's family is at bedside. They hope to get her home on Hospice tomorrow. Family History: Unchanged from Admission Social History: Unchanged from Admission Past Medical History: Unchanged from Admission Objective Active Medications: Acetaminophen (Tylenol Supp*) 650 mg NV Q4H PRN Reason: FEVER Albuterol (Ventolin Hfa Inhaler*) 2 puff INH Q4H PRN Reason: SOB/WHEEZING Atropine Sulfate (Atropine 1% (Oral/Sl)*) 2 drop SL Q2H PRN Reason: Terminal Secretions Ipratropium [place] (Atrovent 0.5 Mg Neb.Uyen*) 0.5 mg INH Q6H PRN Reason: SOB/ WHEEZING Lorazepam (Ativan Tab(*)) 1 mg SL Q4H PRN Reason: Anxiety/Agitation Morphine Sulfate (Morphine Oral Concentrate*) 10 mg PO Q2H PRN Reason: Pain or Dyspnea Ondansetron HCl (Zofran Odt Tab*) 4 mg SL Q8H PRN Reason: NAUSEA/VOMITING Scopolamine (Transderm-Scop 1.5 Mg Patch*) 1 patch TRANSDERM Q72H ON LICENSE OF [facility] Vital Signs - 8 hr 04/21/18 04/21/18 04/21/18 04:03 06:49 07:18 Respiratory 26 20 26 Rate 04/21/18 04/21/18 04/21/18 07:27 08:55 09:35 Respiratory 26 22 24 Rate Oxygen Devices in Use Now: None Appearance: NAD, laying in bed Respiratory: Symmetrical Chest Expansion and Respiratory Effort, Clear to Auscultation Cardiovascular: NL Sounds; No Murmurs; No JVD, RRR Abdominal: NL Sounds; No Tenderness; No Distention Skin: No Rash or Ulcers Neurological: - - Unresponsive Nutrition: Taking PO's Result Diagrams: 04/19/18 14:44 04/19/18 14:44 Additional Lab and Data: . Microbiology and Other Data: Microbiology 04/19/18 15:22 Urine Culture - Final Urine No Growth (<1,000 CFU/mL) Assess/Plan/Problems-Billing Assessment: Ms. Dobbs is an 82 yo with a PMH of ICM with EF 15-20% who was admitted on 04/19 with CVA secondary to left carotid occlusion with plan for comfort care. - Patient Problems (1) End of life care Code(s): Z51.5 - ENCOUNTER FOR PALLIATIVE CARE SNOMED Code(s): 716584779 Comment: - Continue morphine and ativan PRN (2) CVA (cerebral vascular accident) Code(s): I63.9 - CEREBRAL INFARCTION, UNSPECIFIED SNOMED Code(s): 553917630 Comment: - CTA shows left carotid occlusion - Comfort measures only (3) DVT prophylaxis Code(s): ZZJ9214 - SNOMED Code(s): 136408600 Comment: - None indicated, comfort measures only (4) DNR (do not resuscitate) Status and Disposition: Inpatient. Plan for discharge on hospice to home vs the Hospice Residence.
--- NOTE | 2018-04-22 10:53 | DS ---
CC: Dr. Susan Casey * DISCHARGE/ SUMMARY: DATE OF ADMISSION: 04/19/18 DATE OF DISCHARGE: 04/21/18, . ATTENDING PHYSICIAN: Dr. Janeth Mckeon * (dictated by Carmina Beaver NP) PRIMARY CARE PROVIDER: Dr. Susan Casey. PRIMARY DIAGNOSES: 1. Cerebrovascular accident. 2. Left carotid occlusion. SECONDARY DIAGNOSES: 1. Ischemic cardiomyopathy with ejection fraction 15% to 20%. 2. Gastroesophageal reflux disease. 3. Uterine prolapse with pessary. 3. Hypertension. 4. Asthma. CONSULTATIONS WHILE IN THE HOSPITAL: Dr. Royer Toro with Neurology. STUDIES WHILE IN THE HOSPITAL: 1. Brain CT on 04/19/18. Radiologist's impression: Limited study due to motion artifact. Age-related involutional changes and underlying chronic microvascular ischemia. 2. Chest x-ray on 04/19/18. Radiologist's impression: Cardiomegaly without evidence of pneumonia. 3. Brain CT on 04/19/18. Radiologist's impression: Markedly limited study. The CTA head portion of this study was considered nondiagnostic. There was occlusion of the left internal carotid artery at the bifurcation. HISTORY OF PRESENT ILLNESS/HOSPITAL COURSE: Ms. Dobbs was an 82-year-old female with past medical history significant for ischemic cardiomyopathy with EF of 15% to 20%, GERD, hypertension, and asthma, who lived with her son and [id number]. They left to go out of town for a few hours and when they returned about 5-1/2 hours later, the patient was found lying on the floor and unresponsive, so they called EMS. They reported that the patient had been in her usual state of health with no complaints and was cognitively intact and independent and functional at home. While in the emergency room, the patient had a brain CT showing no acute findings. She had a CTA of her head showing a left internal carotid artery occlusion at the bifurcation. The patient was seen in consultation by Dr. Toro with Neurology. The patient had an initial NIH score of 27. She noted to have right arm that was flaccid, right leg weakness. Initially, there was discussion about the patient transferring for a vascular procedure, but the patient's family opted for comfort care measures only. While in the hospital, the patient was kept comfortable. She had a scopolamine patch and morphine sublingual as needed for dyspnea and pain. Initially, there were plans for the patient to go home on hospice, but it was felt that due to hospice being unable to sign her on for several days and her life expectancy only approximately a day, it was decided to keep the patient here at the hospital. The patient today on 04/21/18 at 1525 with her family at bedside. This was confirmed by 2 nurses. I confirmed that the patient had no respirations, no carotid or femoral pulses, and had no apical pulse. The patient's family declined autopsy. This is a summarized report of a complex medical history and hospital stay. For further details, please see the entire medical record. TIME SPENT: Time for this discharge was approximately 50 minutes, greater than half of that was spent with the patient's family discussing their wishes. CONDITION ON DISCHARGE: . Reviewed by KORY MANE 04/25/18 1821 [id number]/[facility] #: [id number] HELENA
== END 2018-04-21 15:25 | disposition expired | DRG 64 ==
LOC: ED 14:09 → MED 17:46
PROVIDERS: ADMIT Internal Medicine; ATTEND Internal Medicine
DX: I63.232 Cerebral infarction due to unspecified occlusion or stenosis of left carotid arteries (principal); R40.2342 Coma scale, best motor response, flexion withdrawal, at arrival to emergency department; R40.2212 Coma scale, best verbal response, none, at arrival to emergency department; K21.9 Gastro-esophageal reflux disease without esophagitis; J44.9 Chronic obstructive pulmonary disease, unspecified; I25.5 Ischemic cardiomyopathy; R29.733 NIHSS score 33; I44.7 Left bundle-branch block, unspecified; R40.2142 Coma scale, eyes open, spontaneous, at arrival to emergency department; I51.7 Cardiomegaly; Z66 Do not resuscitate; Z51.5 Encounter for palliative care; Z88.0 Allergy status to penicillin; Z88.2 Allergy status to sulfonamides; Z90.710 Acquired absence of both cervix and uterus; Z82.49 Family history of ischemic heart disease and other diseases of the circulatory system; Z87.891 Personal history of nicotine dependence
CPT/HCPCS: 36415; 70450; 70496; 70498; 71045; 80053; 80061; 81003; 81015; 83605; 83880; 84484; 85025; 85610; 85730; 86850; 86900; 86901; 87086; 93005; 99284; A9270-GY; J2270; Q9967